=== PATIENT | male | born 1955 | race Caucasian/White ===

== ENCOUNTER 2017-04-07 13:57 | Inpatient (IN) | payer OTHER ==
[~2017-04-07] VITALS: Ht 182.9 cm; Wt 107.9 kg
--- NOTE | ~2017-04-07 | PUL ---
PATIENT'S NAME: ERAN CRYSTAL [facility] AGE: 61 Y [address] ROOM: [address] [address] LOCATION: [facility] ADMIT DATE: 04/07/2017 Pulmonary DISCHARGE DATE: 04/15/2017 FAMILY PHYSICIAN: Edilia Heredia APRN ATTENDING PHYSICIAN: Gene Coon NAME OF PROCEDURE: Trend Oximetry DATE OF PROCEDURE: April 14 to April 15, 2017 REASON FOR PROCEDURE: Nocturnal hypoxemia RESULTS: The patient underwent overnight trend oximetry, saturations ranging from 46% to 97%. Heart rate ranged from 75 to 105 beats per minute. Saturations were below 88% for greater than 5 minutes. IMPRESSION: Severe nocturnal hypoxemia. PLAN: Patient will receive results from the ordering provider. MD YOANDY TORRES/ishaan /[id number] dtt: 05/07/17 0824 Mariann David E. dtd: 04/17/17 1523
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
[2017-04-07 14:25] LABS: BASOPHIL % 0.2 %; HEMATOCRIT 39.7 % (37.0-53.0); IMMATURE GRANULOCYTE # 0.1 K/uL (0.0-0.3); IMMATURE GRANULOCYTE % 0.6 %; LYMPHOCYTE # 1.5 K/uL (0.8-4.0); LYMPHOCYTE % 9.5 %; MCH 30.7 pg (27.0-34.0); MCHC 35.3 gm/dL (32.0-36.5); MCV 87.1 fl (83.0-98.0); MONOCYTE # 1.6 K/uL (0.0-1.0); MONOCYTE % 10.2 %; NEUTROPHIL # (ANC) 12.5 K/uL (1.4-9.0); NEUTROPHIL % 79.5 %; NRBC % 0 /100WBC (0-0.00); PLATELET COUNT 212 K/uL (150-450); RBC 4.56 M/uL (3.50-5.50); RDW-CV 13.7 % (11.9-14.6); WBC 15.7 K/uL (4.0-11.0)
[2017-04-07 14:42] LABS: ALBUMIN 3.6 gm/dL (3.5-5.0); ALK PHOS 62 IU/L (33-138); ALT 60 IU/L (12-78); ANION GAP 16.5 (10.0-19.0); AST 93 IU/L (10-40); BLOOD UREA NITROGEN 29 mg/dL (6-24); CALCIUM 8.3 mg/dL (8.5-10.5); CHLORIDE 105 mMol/L (96-110); CO2 23 mMol/L (22-32); CREATININE 1.2 mg/dL (0.6-1.3); ESTIMATED GFR (MDRD EQUATION) > 60; POTASSIUM 4.5 mMol/L (3.7-5.1); SODIUM 140 mMol/L (135-145); TOTAL BILIRUBIN 0.5 mg/dL (0.0-1.5); TOTAL PROTEIN 6.9 g/dL (6.0-8.4)
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
[2017-04-08 04:10] LABS: BASOPHIL % 0.2 %; EOSINOPHIL % 0.2 %; HEMATOCRIT 37.9 % (37.0-53.0); HEMOGLOBIN 13.1 g/dL (11.0-16.0); IMMATURE GRANULOCYTE # 0.1 K/uL (0.0-0.3); IMMATURE GRANULOCYTE % 0.5 %; LYMPHOCYTE # 1.3 K/uL (0.8-4.0); LYMPHOCYTE % 10.4 %; MCH 30.5 pg (27.0-34.0); MCHC 34.6 gm/dL (32.0-36.5); MCV 88.1 fl (83.0-98.0); MONOCYTE # 1.5 K/uL (0.0-1.0); MONOCYTE % 11.5 %; MPV 9.5 fl (9.4-12.4); NEUTROPHIL # (ANC) 9.8 K/uL (1.4-9.0); NEUTROPHIL % 77.2 %; NRBC % 0 /100WBC (0-0.00); PLATELET COUNT 170 K/uL (150-450); RDW-CV 13.8 % (11.9-14.6); WBC 12.7 K/uL (4.0-11.0)
[2017-04-08 04:32] LABS: ALBUMIN 3.2 gm/dL (3.5-5.0); ALK PHOS 61 IU/L (33-138); ALT 52 IU/L (12-78); ANION GAP 11.5 (10.0-19.0); AST 70 IU/L (10-40); BLOOD UREA NITROGEN 21 mg/dL (6-24); CALCIUM 8.3 mg/dL (8.5-10.5); CHLORIDE 105 mMol/L (96-110); CO2 26 mMol/L (22-32); ESTIMATED GFR (MDRD EQUATION) > 60; POTASSIUM 4.5 mMol/L (3.7-5.1); SODIUM 138 mMol/L (135-145); TOTAL BILIRUBIN 0.6 mg/dL (0.0-1.5); TOTAL PROTEIN 6.6 g/dL (6.0-8.4)
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
[2017-04-08] MEDS ORDERED: LANTUS (IN100 UNIT/M SUB-Q (10:27)
[2017-04-08] MEDS ORDERED: VIAGRA100 MG PO (10:27)
[2017-04-08] MEDS ORDERED: PRILOSEC20 MG PO (10:28)
[2017-04-08] MEDS ORDERED: GLUCOTROL5 MG PO (10:28)
[2017-04-08] MEDS ORDERED: CRESTOR20 MG PO (10:28)
[2017-04-08] MEDS ORDERED: GLUCOPHAGE1000 MG PO (10:28)
[2017-04-08] MEDS ORDERED: COQ-10100 MG PO (10:29)
[2017-04-08] MEDS ORDERED: PRINIVIL OR ZES10 MG PO (10:29)
[2017-04-08] MEDS ORDERED: FISH OIL 1,0001 EACH PO (10:29)
[2017-04-08] MEDS ORDERED: VITAMIN B-12500 MCG PO (10:30)
[2017-04-08] MEDS ORDERED: OCUVITE SOFTGE1 EACH PO (10:30)
[2017-04-08] MEDS ORDERED: ADVIL200 MG PO (10:30)
[2017-04-08] MEDS ORDERED: OSTEO BI-FLEX1 EAC1 PO (10:30)
[2017-04-08] MEDS ORDERED: ARTIFICIAL TEAR15 ML OPHTH (10:31)
--- NOTE | 2017-04-08 13:35 | NUR ---
Significant Event:PT IS AAOX3. PERRLA. NO C/O NUMBNESS OR TINGLING. CLEAR AND DIMINISHED LUNG SOUNDS ON 3-5L NC. ACTIVE BS. 1A GB WALKER. ACHS ACCU CHECKS. HAS ASPEN COLLAR WITH PROCESS TREATER BRACE. NICOTINE PATCH TO R) ARM. L) AC RUNNING MORPHINE HONING JOB SETTER. ETCO2 MONITORING ON. PSYCH CONSULT ORDERED. PT/OT ORDERED. Follow up:
[2017-04-09 04:43] LABS: BASOPHIL # 0.1 K/uL (0.0-0.2); BASOPHIL % 0.4 %; EOSINOPHIL # 0.1 K/uL (0.0-0.5); EOSINOPHIL % 0.4 %; HEMATOCRIT 36.1 % (37.0-53.0); HEMOGLOBIN 12.2 g/dL (11.0-16.0); IMMATURE GRANULOCYTE # 0.1 K/uL (0.0-0.3); IMMATURE GRANULOCYTE % 0.7 %; LYMPHOCYTE # 1.4 K/uL (0.8-4.0); MCH 30.5 pg (27.0-34.0); MCHC 33.8 gm/dL (32.0-36.5); MCV 90.3 fl (83.0-98.0); MONOCYTE # 1.5 K/uL (0.0-1.0); MONOCYTE % 11.7 %; MPV 10.1 fl (9.4-12.4); NEUTROPHIL # (ANC) 9.6 K/uL (1.4-9.0); NEUTROPHIL % 75.8 %; NRBC % 0 /100WBC (0-0.00); PLATELET COUNT 161 K/uL (150-450); RDW-CV 13.8 % (11.9-14.6); WBC 12.7 K/uL (4.0-11.0)
[2017-04-09 05:01] LABS: ALK PHOS 70 IU/L (33-138); ALT 42 IU/L (12-78); ANION GAP 11.4 (10.0-19.0); AST 42 IU/L (10-40); CALCIUM 8.8 mg/dL (8.5-10.5); CHLORIDE 101 mMol/L (96-110); CO2 26 mMol/L (22-32); CREATININE 1.2 mg/dL (0.6-1.3); ESTIMATED GFR (MDRD EQUATION) > 60; POTASSIUM 4.4 mMol/L (3.7-5.1); SODIUM 134 mMol/L (135-145); TOTAL BILIRUBIN 0.5 mg/dL (0.0-1.5); TOTAL PROTEIN 6.8 g/dL (6.0-8.4)
[2017-04-09 05:02] LABS: BLOOD UREA NITROGEN 33 mg/dL (6-24)
--- NOTE | 2017-04-09 05:44 | NUR ---
Significant Event: PATIENT IS ALERT AND ORIENTED. HISOTRY OF ALCOHOL ABUSE. ON MORPHINE CHIEF CONTRACT OFFICER. 1 MG EVERY 15 MIN. NO CONT. ON 5L NC. ETCO2. ACCU CHECKS ACHS WITH MOD SSI. GAVE ONE DOSE OF PERCOCET. NICOTINE PATCH TO RIGHT ARM. ASPEN COLLAR ON AT ALL TIMES WITH BRACE. HAS CHIPPED TOOTH. PROVIDED GAUZE WHICH HE VERBALIZED HELP. Follow up: PATIENT NEEDS MEDICATIONS TO ASSIST IN HAVING A BM.
--- NOTE | 2017-04-09 12:24 | NUR ---
Significant Event:PT IS AAOX3. NO C/O NUMBNESS OR TINGLING. PERRLA. ON 3L NC. COUGH UP GREENISH SPUTUM. DIMINISHED LUNG SOUNDS. AMBULATED IN [place] COUPLE TIMES. ACTIVE BS. GAVE MOM. NO RESULT YET. PERCOCET GIVEN AT 1107. RELIEF NOTED. ON MORPHINE FLIGHT DISPATCHER. NICOTINE PATCH TO R) UPPER ARM. UP 1A GB. ASPEN WITH REGIONAL ECONOMIC LIAISON ON AT ALL TIMES. PLANS FOR CT TOMORROW. ACHS ACCU CHECKS. Follow up:[facility]
--- NOTE | 2017-04-09 12:50 | NUR ---
1045 Went by Isaiah's room and I was going to stop in and talk with him, but he had a female visitor present so I didn't interrupt them. I will stop back by and talk with him later today. Nursing reports they are still monitoring him and are talking about maybe having surgery tomorrow. CM to continue to follow and assist.
[2017-04-10 04:29] LABS: BASOPHIL % 0.3 %; EOSINOPHIL # 0.1 K/uL (0.0-0.5); EOSINOPHIL % 1.1 %; HEMATOCRIT 34.5 % (37.0-53.0); HEMOGLOBIN 11.6 g/dL (11.0-16.0); IMMATURE GRANULOCYTE # 0.1 K/uL (0.0-0.3); IMMATURE GRANULOCYTE % 0.7 %; LYMPHOCYTE # 1.4 K/uL (0.8-4.0); LYMPHOCYTE % 12.3 %; MCH 30.4 pg (27.0-34.0); MCHC 33.6 gm/dL (32.0-36.5); MCV 90.6 fl (83.0-98.0); MONOCYTE # 1.3 K/uL (0.0-1.0); MONOCYTE % 11.6 %; MPV 10.3 fl (9.4-12.4); NEUTROPHIL # (ANC) 8.4 K/uL (1.4-9.0); NRBC % 0 /100WBC (0-0.00); PLATELET COUNT 166 K/uL (150-450); RBC 3.81 M/uL (3.50-5.50); RDW-CV 13.5 % (11.9-14.6); WBC 11.4 K/uL (4.0-11.0)
[2017-04-10 04:46] LABS: ALBUMIN 2.8 gm/dL (3.5-5.0); ANION GAP 10.3 (10.0-19.0); BLOOD UREA NITROGEN 25 mg/dL (6-24); CALCIUM 8.4 mg/dL (8.5-10.5); CHLORIDE 100 mMol/L (96-110); CO2 32 mMol/L (22-32); CREATININE 0.9 mg/dL (0.6-1.3); ESTIMATED GFR (MDRD EQUATION) > 60; MAGNESIUM 2.5 mg/dL (1.8-2.6); PHOSPHORUS 2.6 mg/dL (2.5-4.9); POTASSIUM 4.3 mMol/L (3.7-5.1); SODIUM 138 mMol/L (135-145)
--- NOTE | 2017-04-10 05:19 | NUR ---
Significant Event: PATIENT IS ALERT AND ORIENTED. UP X 1 TO BATHROOM WEARS ASPEN COLLAR WITH THE CT TOMOROW. NS AT KVO. MORPHINE MACHINE CAPTAIN 1 MG DEMAND 15 MIN LO. ON 2 L CV. HR IS ELEVATED. PATIENT IS COUGHING UP GREEN SPUTUM. PATIENT INSTURCTED TO WORK ON IS. HE REPORTS THIS HELPS. Follow up:
--- NOTE | 2017-04-10 15:57 | NUR ---
Stopped by to talk with Isaiah and his daughter who was at bedside. Unsure of discharge needs at this point. Did answer questions re:SWB upon dismissal vs HHC. There is talk of possible surgery on Saturday, pending the repeat CT scan. Will know more about that tomorrow after Dr.Obasi curtis monte to read the report from radiology. Family and pt would be interested in [facility] if he had to go someplace. I let them know that I would be happy to make the referral, but as he was doing so well in therapies, I wasn't for sure if they would be able to accept or not. Did bring up the possibility of having HHC, but Isaiah wasn't for sure if this would be something he would be interested in. His daughter did say that his son would be coming to be with him in 5 days so he would be there as a support system for him if he needed it. Daughter also states that [place] Isaiah lives [place], so [facility] might not services him, [facility] might have to. I let her know that we would look more into this when the time got closer. Also encouraged them to start talking among themselves (the kids) to see who would be able to step up and help him out if he did have to go straight home upon dismissal from us if he wouldn't qualify for SWB. I did review his chart later in the day, saw that Marla Justin wrote for possible GIRP placement after surgery. Let her know that we didn't have a GIRP consult wrote yet, she states they will write one if he has surgery and if he is appropriate for it at that time. CM to continue to follow and assist.
--- NOTE | 2017-04-10 17:36 | NUR ---
A&O-DROWSY. 1PA. VSS. SBP 150'S-160'S. HR NS 90'S-100'S. AFEBRILE. 2L02 NC. C/O PAIN TO NECK,BACK, RIBS. MORPHINE WAYBILL CLERK 8MG THIS 12 HR SHIFT 10 DEMANDS 8 DELIVERIES. ACHS. AMB IN [place] X2. LS DIM. BS HYPOACTIVE. VD PER BR. NO BM TODAY AFTER SUPPOSITORY. BRACE ON AT ALL TIMES. SX CONSULT. ETOH. FAMILY AT BEDSIDE. PLAN IS SURGERY.
--- NOTE | 2017-04-11 04:22 | NUR ---
Significant Event: A/Ox3. Drowsy but easily arousable. Moves all extremities spontaneously and to command. Denies numbness and tingling. Up 1 assist gait belt and walker. VSS on 2L of O2. Hypertensive at times. Brace with collar on at all times - even when showering. C/o of pain to neck, back and ribs. On morphine RADIOISOTOPE PRODUCTION OPERATOR - demand only 1mg [id number]. 14 demands with 12 deliveries this shift. ACHS accuchecks with moderate sliding scale. CIWA score 3-4. Mechanical soft diet. TAkes meds whole. Has a jagged tooth that is cutting is gums. Tachycardic. Small BM this shift. Follow up:
[2017-04-11 04:49] LABS: ALBUMIN 2.6 gm/dL (3.5-5.0); ANION GAP 12.9 (10.0-19.0); BLOOD UREA NITROGEN 17 mg/dL (6-24); CALCIUM 8.4 mg/dL (8.5-10.5); CHLORIDE 98 mMol/L (96-110); CO2 30 mMol/L (22-32); CREATININE 0.7 mg/dL (0.6-1.3); ESTIMATED GFR (MDRD EQUATION) > 60; MAGNESIUM 2.2 mg/dL (1.8-2.6); PHOSPHORUS 3.6 mg/dL (2.5-4.9); POTASSIUM 3.9 mMol/L (3.7-5.1); SODIUM 137 mMol/L (135-145)
--- NOTE | 2017-04-11 11:42 | NUR ---
[facility] note 1100 Consult received in [facility]. Elevated blood sugars since admission, currently only on 40 units of Levemir (was taking 48 units daily at home) New orders from Davion Marquez to add insulin to carb at meals, one unit of Novolog for 15 grams of carb. Also discussed with Davion Marquez to increase Levemir insulin from 40 units to 45 units daily, and we will continue to trend blood sugars. Davion reports that patient is scheduled for EGD 04/12/17, and possible surgery? Patient is currently in room, by himself, sleeping soundly. The Diabetes Management Booklet is left at his bedside and the Diabetes Survival Skills Checklist for his to complete. Will continue to follow and assess educational needs.
--- NOTE | 2017-04-11 13:49 | NUR ---
Gave information that was faxed to me by Pily at the [place] to Isaiah. Informed him and his daughter that the paperwork would need to be filled out and given back to me if it was done today so [facility] could [facility]. If it was done tomorrow, then they would need to give it to the [facility] RN station and they would get it to the correct CM following in my absence. I also shared with them the information that Pily told me about yesterday re:[place] not paying for SWB and that they would recommend coming to their skilled unit if he had needs to come to them, but at this point and time, he was doing pretty well with therapies, so there wasn't really a skilled need. If he were to have surgery tomorrrow after they do the repeat CT scan and he should decline in his activitiy tolerence, then we could look into them as an option. I also told them that I was waiting to hear back from Pily re:[facility] benifits as well. No other questions, needs or concerns. CM to continue to follow and assist.
--- NOTE | 2017-04-11 15:15 | NUR ---
A&O. HTN 150'S160'S. HR 100'S. 2L02. MORPHINE GLASS SMOOTHER UNTIL AFTER MRI 04/12. MECH SOFT SORES TO MOUTH. ETOH HX CIWAA Q4. R FA IV. ACHS. 1PA. BRACE ON AT ALL TIMES. MG CITRATE NO RESULTS. VD PER BR. FAMILY AT BEDSIDE
--- NOTE | 2017-04-12 03:59 | NUR ---
Significant Event: A/OX3. Drowsy but easily arousable. Denies numbness and tingling. Moves all extremities spontaneously and to command. Up 1 assist with gait belt and walker. VSS on 1L of O2. HR in 90s. SBP 130s-150s. afebrile. Brace with collar on at all times - even when showering. C/o of pain to neck, back, ribs, and head. Percocet given x1. ROUTE PROCESS ADMINISTRATOR morphine pump on demand only 1 mg q15 mins. 14 demands, 13 deliveries. achs accuchecks with moderate sliding scale and carb count. ciwa score 2. mechanical soft diet. takes meds whole. has jagged tooth that is cutting into gums. moderate bm this shift. iv to right forearm. Follow up: follow up ct today. discontinue stoper today.
[2017-04-12 04:13] LABS: ALBUMIN 2.6 gm/dL (3.5-5.0); ANION GAP 12.2 (10.0-19.0); BLOOD UREA NITROGEN 18 mg/dL (6-24); CALCIUM 8.5 mg/dL (8.5-10.5); CHLORIDE 96 mMol/L (96-110); CO2 31 mMol/L (22-32); CREATININE 0.7 mg/dL (0.6-1.3); ESTIMATED GFR (MDRD EQUATION) > 60; MAGNESIUM 2.3 mg/dL (1.8-2.6); PHOSPHORUS 4.4 mg/dL (2.5-4.9); POTASSIUM 4.2 mMol/L (3.7-5.1); SODIUM 135 mMol/L (135-145)
--- NOTE | 2017-04-12 10:21 | NUR ---
Diabetes center note: 1705 Spent time with patient discussing Diabetes. Patient states his daughter (who is an MD) assisted him in completing the form last evening. Patient reports getting the supplies that he needs for testing blood sugars through the [facility] in [place], [place], but has been infrequently testing blood sugars. Recommended for patient to increase frequency of testing by checking 3-4 times per day. Traget ranges discussed. At home, patient was taking Lantus 48 units and Glipizide 5 mg and Glucophage 1000 mg BID. CDE discussed with patient that A1C was 8.2 on 04/07/17 and discussed goal of 6.5 %. Discussed with patient that in order to obtain better control of blood sugars, it would be beneficial to add Novolog to meal times, explained action, and recommended 1 unit of Novolog for each 15 grams of carb eaten at meals. [facility]. Patient has attend diabetes class in the past and states understanding education provided. Patient is very open with discussion and admits that he knows what to do, he admits that it takes "alot of disciple" to take care of himself. Patient lives by himself, cooks for himself, and eats out once per day in town. Discussed affects of alcohol and smoking on diabetes, and encouraged rehabilitation, patient states that they have offered this to him in the past but he had refused. Education provided as per all of the topics on the Diabetes Survival Skills checklist and patient does have the Diabetes Management booklet. Patient is encouraged to [facility] and we discussed the need for proper control of blood sugars to reduce risks of infection with wounds and promote healing. Unsure if patient is planning to have surgery, but will continue to follow throughout hospitalization. After the recommendation was made on 04/11/17 to increase Levemir dose from 40 units to 45 units, FBS this a.m. was lower, and is now on 1 unit of Novolog for each 15 grams of carb at meals. Will continue to trend blood sugars and assist as needed.
--- NOTE | 2017-04-12 14:11 | NUR ---
Introduced self and role of care management to pt and his daughter from [facility] by Kirk. I did discuss some regarding dc plans. He states waiting to see if he will need additional surgery or not. He thinks he will need the swingbed before home because he does live alone. I explained the [place] will not cover this and at [facility] they really do not think he will need skilled? He states he paid privately at [employer] before for his exwife and if it is not too terrible he can pay for it. He states he really can not be alone yet but also mentioned [facility]. I stated that could be an option as well but they would not be 17/06. I then called and spoke with Nano Wong and faxed the referral. She knows pt and everyone is out that can give her a rayo per day but will follow up. I also gave referral to [facility] because they do work with the [place]. Amada stated she will fax it on to [place]. WIll continue to follow.
--- NOTE | 2017-04-12 14:14 | NUR ---
[place] stated they can not accept over the weekend so it would have to be next week if this is what he is wanting to do.
--- NOTE | 2017-04-12 14:25 | NUR ---
A-SCREENED D/T LOS HT: 72 IN. WT: 109.1 KG. BMI: 32.6 LABS: GLU 162, ALB 2.6 MEDS: VIT B12, VIT B1, FOLIC ACID, MVI, NARCAN, ATIVAN, ZOFRAN, PERCOCET, LEVEMIR, NOVOLOG, VALIUM, CITROMA, COLACE, MIRALAX, PRN BOWEL MEDS, PROTONIX. DIET RX: CONSISTENT CARB/MECH SOFT. PO INTAKE 50-100% EST NUTR NEEDS: 8883-4341 KCALS (15-20 KCALS/KG) 87-109 GM PROTEIN (0.8-1.0 GM/KG) 1 ML FLUID/KCAL D-NOT AT NUTRITION RISK; NO NUTRITION DX IDENTIFIED I-CONTINUE W/CURRENT DIET RX M/E-WILL ASSIST NEEDED
--- NOTE | 2017-04-12 19:11 | NUR ---
Significant Event: PT ALERT AND ORIENTED X3. PERRLA. CSM INTACT. TRANSFERS WITH STAND-BY ASSIST/GAIT BELT/WALKER. [employer] D/C'D AT 0750. PT'S PAIN HAS BEEN ADEQUATELY CONTROLLED WITH PRN PERCOCET; 2 TABS LAST GIVEN AT 1825. PRN PO VALIUM GIVEN AT 1121. COOPERATIVE WITH INCENTIVE SPIROMETER. HAS BEEN UP IN THE CHAIR ALL SHIFT. AMBULATED IN THE [place] SEVERAL TIMES WITH PHYSICAL THERAPY. O2 AT 2 LITERS PER NASAL CANNULA. VITAL SIGNS STABLE. VOIDS PER BATHROOM/URINAL. 3 LOOSE BM'S THIS SHIFT PER PT'S REPORT. AC/HS ACCUCHECKS WITH MODERATE SLIDING SCALE, PLUS CARB COUNT. IV TO R)FA SALINE LOCKED. BRACE TO BE ON AT ALL TIMES; MAY TAKE OFF TO SHOWER. FOLLOW-UP CT SCAN OF SPINE DONE THIS AM. CIWA SCORES HAVE BEEN 0-1 THIS SHIFT. PLEASANT AND COOPERATIVE WITH CARES. DAUGHTER HAS BEEN AT BEDSIDE ALL AFTERNOON. Follow up: MONITOR PAIN, HOME SOON?
--- NOTE | 2017-04-13 05:23 | NUR ---
A&O. SBA with gait belt and walker. 1-2 ltr O2. Dim bases. Scattered scrapes and abrasions. ACHS moderate scale as well as carb count with meals. Must have soft brace on at all times with the exception of showering. IV R FA SL. 1-2 Percocet Q4H PRN. Last at 0241. Has a jagged tooth cutting into hi gums- Dr. Tay contacted. CIWA Q4H- has lamine 0 this shift.
--- NOTE | 2017-04-13 16:14 | NUR ---
Significant Event: A/O X3. Denies N/T. Moves everything spontaneously and to command. VSS. Afebrile. Room air with sats in the low 90s. LS clear and diminished. [place] collar and brace on at all times except to shower he may have it off. BS active X4. No BM this shift. Voids per toilet. Numerous abrasion and bruises. R) FA PIV SLL. SBA using gaitbelt. Accuchecks ACHS with SSI and carb count. Percocet X2 tabs given Q4H for pain. CIWA score 0 all shift. Pleasant and cooperative with cares. Follow up:
--- NOTE | 2017-04-14 04:25 | NUR ---
Significant Event: AAOx3, denies N/T. Equal strong strength to bilateral upper extremiteis. Equal moderate strength to bilateral lower extremities. 2-3+ edema to legs. Systolic 110-150's, HR 70-80's. [place] collar with TLSO brace on at all times except when showering. L.S. diminished in lower lobes on 1L via [place]., produces 1500 with I.S. B.S. active, last BM 04/12, distended abdomen but no complaints of fullness or constipation. PIV R) forearm SL'd. Takes meds whole no difficulties. Gave Percocet Q4Hrs, last given at 0400, Morphine 2mg IV given at 0145 for pain 7/10 lumbar back; relief noted. Up 1PA GB. Accuchecks AC/HS with carb count. Follow up: Plan for swingbed this week? Neuro checks, monitor for breakthrough pain.
--- NOTE | 2017-04-14 14:00 | NUR ---
Significant Event: AOx3. VSS. CSM WNL. Brace to be on at all times except to shower. AC&HS accuchecks. Room air. R) FA IV SL. Percocet 2 tabs given Q 4hrs PRN for pain. Walked halls x2. Up adlib in room. Follow up: May go either home or swing bed tomorrow.
--- NOTE | 2017-04-15 03:36 | NUR ---
Patient has been doing an overnight trend ox all night. Patient is having significant desaturations (less than 70%). Dr Hernandez ordered CPAP, RT to titrate to keep sats >85% but patient refuses. Says he has a CPAP at home and cannot tolerate it. Refused ours and stated he does not want to wear it and does not want to pay for it.
--- NOTE | 2017-04-15 03:56 | NUR ---
Significant Event: AAOx3, denies N/T. PERRLA 3mm brisk. Moves spontaneously and on command. Equal strong strength to upper extremities. Equal moderate strength to bilateral lower extremiteis, 2-3+ generalized edema. Systolic 120-130's, HR 80's. L.S. clear and diminished in upper lobes, diminished in lower lobes, on trend oximetry throughout night for possible dismissal home today, patient does have a history of obstructive sleep apnea and has had a CPAP used in the past but did not tolerate the device well d/t clostrophobia. Saturations while sleeping did decrease to mid 40's, notified Hospitalist of findings, order to receive CPAP yet patient refused, titrated O2 and is now at 4L to keep SpO2>85%. Produces 1750 with I.S. B.S. active, last BM 04/12. Urinates per urinal. Up 2BA with [place] collar CTLSO brace to be worn at all times except when shoering. Gave Percocet 2tabs Q4Hrs for pain relief but d/t patients increased obstructive apnea, will try to wean to 1 tab Q4hrs, rates pain 5-7/10 in thoracic area. Follow up: Neuro checks, plan for possible dismissal home today
[2017-04-15 10:21] LABS: ANION GAP 12.1 (10.0-19.0); BLOOD UREA NITROGEN 17 mg/dL (6-24); CHLORIDE 100 mMol/L (96-110); CO2 30 mMol/L (22-32); CREATININE 0.9 mg/dL (0.6-1.3); ESTIMATED GFR (MDRD EQUATION) > 60; MAGNESIUM 2.5 mg/dL (1.8-2.6); PHOSPHORUS 3.3 mg/dL (2.5-4.9); POTASSIUM 4.1 mMol/L (3.7-5.1); SODIUM 138 mMol/L (135-145)
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
--- NOTE | 2017-04-15 12:44 | NUR ---
Social visit with Isaiah this morning. Talked with him about dismissal plans, either home with [facility] or going to [facility] as a private pay patient. He tells me that he talked with Shanice SILVESTRE, this morning and they have it all worked out for him to go there. He has obtained a ride from his "corporation secretary" and she will be here around 1400 to pick him up. I let him know that this was fine and we would have orders ready for him to go at that time. I called and talked with KONRAD Prasad who confirms that she did talk with Isaiah this morning and that they can accept. Dr. Trotter will accept Isaiah when he come there. MD to number was given to FREDDIE De La Rosa and she was going to give it to Dr. Coon or Surjit Interiano when they rounded to complete the orders. Dr. Blevins #[phone], RN to RN number was also give to FREDDIE De La Rosa to call in report before Isaiah left the building. I got a call from Surjit that she has tried to call Dr. Blevins x2 times but her VM on her cell phone and at the office number but she was unable to make contact with her at this time. I asked Surjit that call me once she either hears back from Dr. Blevins or if she still hasn't made contact with her at 1330. She states she will keep me updated. I phoned KONRAD Prasad, had to leave a VM as she didn't answer, asking that she call me back with some questions that I have for her re:being able to reach MD before Isaiah leaves. No call back at this time. Dismissal orders were faxed prior to his dismissal. No other questions, needs or concerns. I did ask if Isaiah had the paperwork completed for the [place] that I gave him the other day, he tells me he hasn't done it yet. I encouraged him to complete that and then once he was done with it fax it back to Pily at the [place] at the number listed on the sheet as soon as possible. CM to continue to follow and assist.
--- NOTE | 2017-04-15 13:48 | NUR ---
Diabetes Center note: 1330 Preparing for dismissal today. Patient states he is planning to follow up in [facility] for on-going assistance with his diabetes care. Discussed the insulin (Novolog) to carb ratio regimen that he has been receiving here to assist with overall glycemic control. Discussed details, and encouraged patient to suggest this to the primary care provider. Current A1C was 8.2 on 04/07/17, so patient is aware that there is some room for improvement in glycemic control. Also, patient states that he is going to "stay away from the booze" and this will also assist with blood sugar control. Patient is motivated and verbalizes openly that he wants to make some "lifestyle changes" including taking better care of himself. Patient reports [facility] Encouraged patient to also contact the Diabetes Center here at [facility] if we can be of further assistance.
--- NOTE | 2017-04-15 17:10 | NUR ---
Discharge note: Patient VSS. Packet of transfer papers were given to pt . Personal items gathered. Patient ambulated to [facility] for transport to [place] with daughter. Percocet x1 was given before living for pain control on the ride home. Brace was in place.
[2017-05-22] MEDS ORDERED: PERCOCET 5-3251 EACH PO (09:07)
[2017-05-22] MEDS ORDERED: CPAP INH (09:11)
[2017-05-22] MEDS ORDERED: NEURONTIN400 MG PO (13:23)
== END 2017-04-15 16:27 | disposition swing bed (61) | DRG 199 ==
LOC: GACC 13:57 → GNTU 17:03
PROVIDERS: Family Medicine; Internal Medicine; Physician Assistant; ADMIT Surgery
PROC: 3E0F7GC Introduction of Other Therapeutic Substance into Respiratory Tract, Via Natural or Artificial Opening (ICD-10-PCS; principal; 2017-04-07)
PROC: HZ2ZZZZ Detoxification Services for Substance Abuse Treatment (ICD-10-PCS; principal; 2017-04-07)
PROC: 0NSBXZZ Reposition Nasal Bone, External Approach (ICD-10-PCS; 2017-04-08)
DX: S27.0XXA Traumatic pneumothorax, initial encounter (principal); J96.01 Acute respiratory failure with hypoxia; G93.40 Encephalopathy, unspecified; S22.028A Other fracture of second thoracic vertebra, initial encounter for closed fracture; S27.322A Contusion of lung, bilateral, initial encounter; S22.43XA Multiple fractures of ribs, bilateral, initial encounter for closed fracture; E11.65 Type 2 diabetes mellitus with hyperglycemia; M50.21 Other cervical disc displacement, high cervical region; F10.239 Alcohol dependence with withdrawal, unspecified; F10.24 Alcohol dependence with alcohol-induced mood disorder; S22.038A Other fracture of third thoracic vertebra, initial encounter for closed fracture; S22.041A Stable burst fracture of fourth thoracic vertebra, initial encounter for closed fracture; S02.2XXA Fracture of nasal bones, initial encounter for closed fracture; S02.5XXA Fracture of tooth (traumatic), initial encounter for closed fracture; S00.01XA Abrasion of scalp, initial encounter; I10 Essential (primary) hypertension; E78.5 Hyperlipidemia, unspecified; G47.33 Obstructive sleep apnea (adult) (pediatric); K59.00 Constipation, unspecified; K21.9 Gastro-esophageal reflux disease without esophagitis; R00.0 Tachycardia, unspecified; K76.0 Fatty (change of) liver, not elsewhere classified; R60.0 Localized edema; F32.9 Major depressive disorder, single episode, unspecified; E66.9 Obesity, unspecified; Z68.32 Body mass index [BMI] 32.0-32.9, adult; V57.5XXA Driver of pick-up truck or van injured in collision with fixed or stationary object in traffic accident, initial encounter; Z79.4 Long term (current) use of insulin; Z79.899 Other long term (current) drug therapy; Z87.891 Personal history of nicotine dependence; Z91.19 Patient's noncompliance with other medical treatment and regimen; Z82.49 Family history of ischemic heart disease and other diseases of the circulatory system
CPT/HCPCS: J1650; J2270; J7030; J7050; L0174

== ENCOUNTER → 2017-05-09 | Outpatient (CLI) | payer OTHER ==
[~2017-05-09] MED LIST: ADVIL200 MG PO; ARTIFICIAL TEAR15 ML OPHTH; COQ-10100 MG PO; CPAP INH; CRESTOR20 MG PO; FISH OIL 1,0001 EACH PO; GLUCOPHAGE1000 MG PO; GLUCOTROL5 MG PO; LANTUS (IN100 UNIT/M SUB-Q; NEURONTIN400 MG PO; OCUVITE SOFTGE1 EACH PO; OSTEO BI-FLEX1 EAC1 PO; PERCOCET 5-3251 EACH PO; PRILOSEC20 MG PO; PRINIVIL OR ZES10 MG PO; VIAGRA100 MG PO; VITAMIN B-12500 MCG PO
== END | disposition disaster alternative care site (69) ==
LOC: GRAD 10:24
DX: S29.9XXA Unspecified injury of thorax, initial encounter (principal); S22.049A Unspecified fracture of fourth thoracic vertebra, initial encounter for closed fracture; S22.069A Unspecified fracture of T7-T8 vertebra, initial encounter for closed fracture; X58.XXXA Exposure to other specified factors, initial encounter

== ENCOUNTER → 2017-05-23 | Outpatient (CLI) | payer OTHER ==
[2017-05-23 15:22] LABS: MCV 85.8 fl (83.0-98.0); MPV 10.4 fl (9.4-12.4); RBC 4.66 M/uL (3.50-5.50); RDW-CV 12.9 % (11.9-14.6); WBC 8.6 K/uL (4.0-11.0)
[2017-05-23 15:33] LABS: INR - (THERAPEUTIC) 0.96 (0.92-1.07); PROTIME 10.1 SECONDS (9.8-11.4)
[2017-05-23 15:37] LABS: ALBUMIN 3.5 gm/dL (3.5-5.0); BLOOD UREA NITROGEN 15 mg/dL (6-24); CALCIUM 8.5 mg/dL (8.5-10.5); CHLORIDE 106 mMol/L (96-110); CO2 27 mMol/L (22-32); CREATININE 0.8 mg/dL (0.6-1.3); ESTIMATED GFR (MDRD EQUATION) > 60; PHOSPHORUS 3.5 mg/dL (2.5-4.9); SODIUM 140 mMol/L (135-145)
== END | disposition disaster alternative care site (69) ==
LOC: GOPD 05-21
PROVIDERS: Radiology Diagnostic Radiology
PROC: 0PU43JZ Supplement Thoracic Vertebra with Synthetic Substitute, Percutaneous Approach (ICD-10-PCS; principal; 2017-05-23)
DX: S22.009G Unspecified fracture of unspecified thoracic vertebra, subsequent encounter for fracture with delayed healing (principal); S29.9XXA Unspecified injury of thorax, initial encounter
CPT/HCPCS: J0690; J1644; J2001; J7030